=== PATIENT | female | born 1990 | race African-American/Black ===

== ENCOUNTER 2019-03-13 10:10 | Emergency (ER) | payer MEDICARE, MEDICAID ==
[~2019-03-13] VITALS: Ht 162.6 cm; Wt 99.0 kg
[~2019-03-13 10:10] MED LIST: CEPH-569 PO; INSU3INS6 SQ; LATUDA; SEROQUEL; [UNRECOGNIZED DRUG - OTHER] PO
[2019-03-13] MEDS ORDERED: IBUPROFEN 400MG TABLET PO ONE (11:45)
[2019-03-13] MEDS ORDERED: LIDOCAINE HCL/PF 1% 10 MG/ML 5ML VIAL IJ ONE (11:45)
[2019-03-13] MEDS ORDERED: TETANUS, DIPHTHERIA, PERTUSSIS VAC/PF 0.5ML (>7YR OLD) IM ONE (11:45)
[2019-03-13] MEDS ORDERED: BACITRACIN ZINC OINT UDPKT TOP ONE (11:45)
[2019-03-13] MEDS ORDERED: CEFAZOLIN 1000MG PREMIX 50 ML IV ONE (12:30)
[2019-03-13 14:17] VITALS: BP 117/79
== END 2019-03-13 14:20 | disposition home or self-care (01) ==
LOC: ER 10:10
DX: S61.012A Laceration without foreign body of left thumb without damage to nail, initial encounter (principal); W26.0XXA Contact with knife, initial encounter; Y93.89 Activity, other specified; Y92.89 Other specified places as the place of occurrence of the external cause; Y99.8 Other external cause status
CPT/HCPCS: 12001; 73140; 90471; 90715; 96365; 99283; J0690; J3490

== ENCOUNTER 2021-01-06 09:44 | Emergency (ER) | payer MEDICARE, MEDICAID ==
[~2021-01-06] VITALS: Ht 162.6 cm; Wt 88.0 kg
[2021-01-06] MEDS ORDERED: ACETAMINOPHEN 325MG TABLET PO STA (10:12)
[2021-01-06] MEDS ORDERED: SODIUM CHLORIDE 0.9% 1,000 ML IV ONE ×2 (10:15→12:15)
[2021-01-06 10:50] LABS: HEMATOCRIT. 44.5 % (36.0-48.0); HEMOGLOBIN. 14.8 g/dL (12.0-16.0); MEAN CORPUSCULAR HEMOGLOBIN 27.2 pg (28.0-32.0); MEAN CORPUSCULAR VOLUME 81.5 fL (81.0-99.0); MEAN PLATELET VOLUME 7.2 fl (7.4-10.4); PLATELET 395 x1000/uL (130-400); RED BLOOD CELL COUNT 5.45 mill/uL (4.2-5.4); RED CELL DISTRIBUTION WIDTH 13.5 % (11.6-14.6)
[2021-01-06 10:57] LABS: CHLORIDE 102 mEq/L (98-107)
[2021-01-06 11:00] LABS: PROTHROMBIN TIME 10.4 sec (9.6-11.0)
[2021-01-06 11:04] LABS: CLARITY URINE CLEAR (CLEAR); COLOR URINE YELLOW (YELLOW); KETONES URINE TRACE (NEGATIVE); LEUKOCYTE ESTERASE URINE NEGATIVE (NEGATIVE); NITRITE URINE NEGATIVE (NEGATIVE); OCCULT BLOOD URINE 3+ (NEGATIVE); PROTEIN URINE NEGATIVE (NEGATIVE); SPECIFIC GRAVITY URINE 1.034 (1.005-1.030); UROBILINOGEN URINE 0.2 E.U./dL (0.2-1.0)
[2021-01-06 11:07] LABS: HCG SCREEN NEGATIVE
[2021-01-06 11:45] LABS: PLATELET ESTIMATE NORMAL
[2021-01-06] MEDS ORDERED: KETOROLAC 15MG/ML VIAL IV NR (12:15)
[2021-01-06] MEDS ORDERED: VANCOMYCIN 1 G PREMIX 200 ML IV SCH (12:15)
[2021-01-06] MEDS ORDERED: PIPERACILLIN/TAZOBACTAM 3.375GM/50ML PREMIX IV NR (12:15)
[2021-01-06] MEDS ORDERED: IOHEXOL-300 100 ML BOTTLE ONE (13:16)
[2021-01-06 14:00] VITALS: BP 142/81
== END 2021-01-06 15:15 | disposition left against medical advice (07) ==
LOC: ER 09:44
DX: A41.9 Sepsis, unspecified organism (principal); R65.20 Severe sepsis without septic shock; I10 Essential (primary) hypertension; F17.200 Nicotine dependence, unspecified, uncomplicated; F12.10 Cannabis abuse, uncomplicated; E11.9 Type 2 diabetes mellitus without complications; Z86.59 Personal history of other mental and behavioral disorders; Z53.29 Procedure and treatment not carried out because of patient's decision for other reasons
CPT/HCPCS: 36415; 70487; 71045; 80053; 81003; 81025; 83605; 84145; 84703; 85025; 85610; 87040; 87086; 96365; 96366; 96375; 99291; J2543; J3370; J7030; Q9967; 99285

== ENCOUNTER 2021-01-06 15:19 | Emergency (ER) | payer MEDICARE, MEDICAID ==
[~2021-01-06] VITALS: Ht 162.6 cm; Wt 86.0 kg
[2021-01-06 20:53] VITALS: BP 151/74
== END 2021-01-06 21:09 | disposition short-term general hospital (02) ==
LOC: ER 15:19
DX: A41.9 Sepsis, unspecified organism (principal); L03.211 Cellulitis of face; F17.200 Nicotine dependence, unspecified, uncomplicated; I49.9 Cardiac arrhythmia, unspecified; E11.9 Type 2 diabetes mellitus without complications; Z86.59 Personal history of other mental and behavioral disorders
CPT/HCPCS: 82962; 93005; 99285